=== PATIENT | male | born 1990 | race Hispanic/Latino ===

== ENCOUNTER 2019-10-23 23:46 | Emergency (ER) | payer SELFPAY ==
[2019-10-23 23:57] VITALS: BP 146/101
[2019-10-24] MEDS ORDERED: IBUPROFEN 600 MG TAB PO ONE (00:49)
[2019-10-24] MEDS ORDERED: ACETAMINOPHEN 500 MG TAB PO ONE (00:49)
--- NOTE | 2019-10-24 00:56 | Emergency Department Report ---
ED Back Pain/Injury HPI - General Chief Complaint: Back Pain/Injury Stated Complaint: BACK PAIN X 3DAYS Source: patient Limitations: No Limitations - History of Present Illness Initial Comments: Patient is a 28-year-old white male with no past medical history who presents to the ED with complaint of acute onset persistent severe nontraumatic low back pain after heavy lifting at work 5 days ago. Patient states that the pain is worse sometimes is unable to bend or walk because of severe pain. Patient denies fall, traumatic injury, hematuria, abdominal pain, nausea, vomiting, chest pain or shortness of breath, numbness and tingling or weakness of lower extremities bilaterally, cough, fever and chills, saddle paresthesia or urinary and bowel incontinence. MD Complaint: back pain, back injury, other (Heavy lifting at work, now has low back pain and spasms) -: Sudden, days(s) (5) Similar Symptoms Previously: No Place: work Radiation: none Severity: severe Severity scale (0 -10): 7 Quality: sharp, aching Consistency: constant Improves With: none Worsens With: movement, walking Context: while lifting, turning/twisting Associated Symptoms: denies other symptoms. denies: confusion, weakness, chest pain, numbness, difficulty walking, cough, difficulty urinating, diaphoresis, incontinence, constipation, headaches, abdominal pain, loss of appetite, nausea/vomiting, rash, shortness of breath, other - Related Data Previous Rx's Medication Instructions Recorded Last Taken Type Cyclobenzaprine [Flexeril] 10 mg PO TID PRN #24 tablet 10/24/19 Unknown Rx Ibuprofen [Motrin] 800 mg PO Q8HR PRN #30 tablet 10/24/19 Unknown Rx predniSONE [Deltasone] 40 mg PO QDAY #10 tab 10/24/19 Unknown Rx Allergies Allergy/AdvReac Type Severity Reaction Status Date / Time No Known Allergies Allergy Verified 10/23/19 23:49 ED Review of Systems ROS: Stated complaint: BACK PAIN X 3DAYS Other details as noted in HPI Constitutional: denies: chills, fever Eyes: denies: eye pain, eye discharge, vision change ENT: denies: ear pain, throat pain Respiratory: denies: cough, shortness of breath, wheezing Cardiovascular: denies: chest pain, palpitations Endocrine: no symptoms reported Gastrointestinal: denies: abdominal pain, nausea, diarrhea Genitourinary: denies: urgency, dysuria Musculoskeletal: back pain (low back pain), arthralgia. denies: joint swelling Skin: denies: rash, lesions Neurological: denies: headache, weakness, paresthesias Psychiatric: denies: anxiety, depression Hematological/Lymphatic: denies: easy bleeding, easy bruising ED Past Medical Hx - Past Medical History Previous Medical History?: No - Surgical History Past Surgical History?: Yes Additional Surgical History: wisdom teeth - Social History Smoking Status: Current Every Day Smoker Substance Use Type: Alcohol - Medications Home Medications: Home Medications Medication Instructions Recorded Confirmed Last Taken Type Cyclobenzaprine [Flexeril] 10 mg PO TID PRN #24 tablet 10/24/19 Unknown Rx Ibuprofen [Motrin] 800 mg PO Q8HR PRN #30 tablet 10/24/19 Unknown Rx predniSONE [Deltasone] 40 mg PO QDAY #10 tab 10/24/19 Unknown Rx ED Physical Exam - General Limitations: No Limitations General appearance: alert, in no apparent distress - Head Head exam: Present: atraumatic, normocephalic, normal inspection - Eye Eye exam: Present: normal appearance, PERRL, EOMI Pupils: Present: normal accommodation - ENT ENT exam: Present: normal exam, normal orophraynx, mucous membranes moist, TM's normal bilaterally, normal external ear exam - Neck Neck exam: Present: normal inspection, full ROM. Absent: tenderness, lymphadenopathy - Respiratory Respiratory exam: Present: normal lung sounds bilaterally. Absent: respiratory distress, wheezes, rhonchi, chest wall tenderness, accessory muscle use, decreased breath sounds - Cardiovascular Cardiovascular Exam: Present: regular rate, normal rhythm, normal heart sounds. Absent: systolic murmur, diastolic murmur, rubs, gallop - GI/Abdominal GI/Abdominal exam: Present: soft, normal bowel sounds. Absent: tenderness, guarding, rebound, hyperactive bowel sounds, hypoactive bowel sounds - Extremities Exam Extremities exam: Present: normal inspection, full ROM, normal capillary refill - Back Exam Back exam: Present: normal inspection, full ROM, tenderness (palpable lumbosacral paraspinal musculoskeletal tenderness), muscle spasm, paraspinal tenderness - Neurological Exam Neurological exam: Present: alert, oriented X3, CN II-XII intact, normal gait, reflexes normal - Psychiatric Psychiatric exam: Present: normal affect, normal mood - Skin Skin exam: Present: warm, dry, intact, normal color. Absent: rash ED Course Vital Signs 10/23/19 23:55 Temperature 97.8 F Respiratory 18 Rate Blood Pressure 146/101 ED Medical Decision Making - Medical Decision Making This is a 28-year-old white female with no past medical history who presented with persistent severe low back pain after heavy lifting at work 5 days ago. In the ED, patient is alert and oriented 3 and is not in distress with normal vital signs. Patient was treated for pain in the ED and discharged home on pain medications and muscle relaxants and was advised to follow-up with [facility] in 5-7 days for reevaluation or return to the ED immediately if symptoms get worse. - Differential Diagnosis Muscle strain; Muscle spasm; low back pain Critical care attestation.: If time is entered above; I have spent that time in minutes in the direct care of this critically ill patient, excluding procedure time. ED Disposition Clinical Impression: Spasm of muscle of lower back, Strain of muscle, fascia and tendon of lower back, initial encounter Disposition: TO HOME OR SELFCARE Is pt being admited?: No Does the pt Need Aspirin: No Condition: Stable Instructions: Muscle Strain (ED), Muscle Spasm (ED), Acute Low Back Pain (ED) Additional Instructions: Take medications with food, drink plenty of fluids and follow-up with your primary care physician in 5-7 days for reevaluation. Return to the ED im mediately if symptoms get worse. Prescriptions: predniSONE [Deltasone] 40 mg PO QDAY #10 tab Cyclobenzaprine [Flexeril] 10 mg PO TID PRN #24 tablet PRN Reason: Muscle Spasm Ibuprofen [Motrin] 800 mg PO Q8HR PRN #30 tablet PRN Reason: Pain , Severe (7-10) Referrals: [facility] [Outside] - 3-5 Days Forms: Work/School Release Form(ED) Time of Disposition: 00:59 Print Language: RWANDAN
[2019-10-24] MEDS ORDERED: predniSONE 20 MG TAB PO ONE (01:01)
== END 2019-10-24 01:21 | disposition home or self-care (01) ==
LOC: ED 23:46
DX: S39.012A Strain of muscle, fascia and tendon of lower back, initial encounter (principal); M62.830 Muscle spasm of back; F17.200 Nicotine dependence, unspecified, uncomplicated; Z79.1 Long term (current) use of non-steroidal anti-inflammatories (NSAID); Z79.899 Other long term (current) drug therapy; X58.XXXA Exposure to other specified factors, initial encounter; Y93.89 Activity, other specified; Y92.89 Other specified places as the place of occurrence of the external cause; Y99.8 Other external cause status
CPT/HCPCS: 99282; J7512

== ENCOUNTER 2020-03-09 12:16 | Emergency (ER) | payer SELFPAY | END 2020-03-09 12:17 | disposition left against medical advice (07) | LOC: ED 12:16 | DX: Z53.21 Procedure and treatment not carried out due to patient leaving prior to being seen by health care provider (principal) ==

== ENCOUNTER 2020-09-07 12:49 | Emergency (ER) | payer OTHER ==
[2020-09-07] MEDS ORDERED: DIPHtheria,PERTUSSIS(ACELL),TETANUS VACCINE/PF 0.5 ML VIAL IM ONE (13:25)
[2020-09-07] MEDS ORDERED: AMOXICILLIN/K CLAV 875/125MG TAB PO ONE (13:25)
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
[2020-09-07 14:04] LABS: Bilirubin,Urine NEG (Negative); Blood,Urine NEG (Negative); Color,Urine Yellow (Yellow); Mucus,Urine FEW /HPF; Protein,Urine <15 mg/dL mg/dL (Negative); RBC,Urine < 1.0 /HPF (0.0-6.0); Urobilinogen,Urine < 2.0 mg/dL (<2.0)
[2020-09-07 14:11] LABS: Benzodiazepines Screen,Urine Negative; Cocaine Screen,Urine Negative; Methadone Screen,Urine Negative; Opiate Screen,Urine Negative
[2020-09-07 14:23] LABS: Basophils % (Auto) 0.4 % (0.0-1.8); Eosinophils % (Auto) 0.4 % (0.0-4.3); Hematocrit 46.2 % (35.5-45.6); Hemoglobin 15.6 gm/dl (11.8-15.2); Lymphocytes # (Auto) 1.7 K/mm3 (1.2-5.4); Mean Corpuscular HGB Conc 34 % (32-34); Mean Corpuscular Volume 86 fl (84-94); Monocytes # (Auto) 0.7 K/mm3 (0.0-0.8); Monocytes % (Auto) 9.1 % (0.0-7.3); Platelet Count 201 K/mm3 (140-440); Red Blood Count 5.39 M/mm3 (3.65-5.03)
--- NOTE | 2020-09-07 14:29 | XRay Report ---
CHEST 1 VIEW 09/07/2020 2:05 PM INDICATION / CLINICAL INFORMATION: Shortness of breath. COMPARISON: None available. FINDINGS: SUPPORT DEVICES: None. HEART / MEDIASTINUM: No significant abnormality. LUNGS / PLEURA: No significant pulmonary or pleural abnormality. No pneumothorax. ADDITIONAL FINDINGS: Previous internal fixation in the mid right clavicle. IMPRESSION: 1. No acute findings. Signer Name: Andrew Howard MD Signed: 09/07/2020 2:25 PM Workstation Name: [id number]
[2020-09-07 14:38] LABS: Amphetamine Screen,Urine Positive; Cannabinoid Screen,Urine Positive
[2020-09-07 14:40] LABS: Creatine Kinase MB 4.9 ng/mL (0.0-4.0)
[2020-09-07 14:42] LABS: BUN/Creatinine Ratio 15; Blood Urea Nitrogen 12 mg/dL (9-20); Hemolysis Index 26
--- NOTE | 2020-09-07 16:43 | Cat Scan Report ---
CT angio chest INDICATION / CLINICAL INFORMATION: Chest pain. Shortness of breath.. TECHNIQUE: Axial CT images were obtained through the chest after injection of IV contrast. 3 plane MIP and/or 3D reconstructions were produced. All CT scans at this location are performed using CT dose reduction f or ALARA by means of automated exposure control. COMPARISON: X-ray dated same day. FINDINGS: PULMONARY ARTERIES: No pulmonary emboli. HEART: No significant abnormality. MEDIASTINUM / AGGIE: No significant abnormality. LUNGS: Lungs are clear No pleural effusion. No pneumothorax. ADDITIONAL FINDINGS: None. UPPER ABDOMEN: No acute findings. SKELETAL STRUCTURES: No significant osseous abnormality. IMPRESSION: 1. No CT evidence for pulmonary embolism. 2. No acute findings. Signer Name: Stanislav Woodson MD Signed: 09/07/2020 4:37 PM Workstation Name: [id number]
[2020-09-07 17:28] VITALS: BP 158/86
== END 2020-09-07 17:36 ==
LOC: ED 12:49 → EEVIPCON 12:49 → ED 17:36
DX: F15.10 Other stimulant abuse, uncomplicated (principal); F17.200 Nicotine dependence, unspecified, uncomplicated; Z79.1 Long term (current) use of non-steroidal anti-inflammatories (NSAID); Z79.2 Long term (current) use of antibiotics; Z79.899 Other long term (current) drug therapy; W50.3XXA Accidental bite by another person, initial encounter; Y93.89 Activity, other specified; Y92.89 Other specified places as the place of occurrence of the external cause; Y99.8 Other external cause status
CPT/HCPCS: 36415; 71045; 71275; 80048; 80307; 81001; 82550; 82553; 84484; 85025; 85379; 90471; 90715; 93005; 99285; Q9967; 80320; G0480